=== PATIENT | female | born 2000 | race Caucasian/White ===

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

== ENCOUNTER 2022-05-22 09:24 | Day surgery (SDC) | payer MEDICAID ==
[~2022-05-22 09:24] MED LIST changes: -EPINEPHrine 1 MG/ML SDV ONE; +Lactated Ringers 1,000 ML IV SCH; -Lidocaine 1% 4 ML ONE; -Midazolam 1 MG/ML 2 ML SDV ONE; -Ropivacaine 0.5% 5 MG/ML 30 ML SDV ONE; +Sodium Chloride 0.9% 10 ML Syringe FLUSH SCH; -fentaNYL 250 MCG/5 ML SDV ONE
[2022-05-22] MEDS ORDERED: Scopolamine 1.5 MG Transdermal Patch TOP ONE (09:45)
[2022-05-22] MEDS ORDERED: EPINEPHrine 1 MG/ML 30 ML MDV IRR SCH (10:00)
[2022-05-22] MEDS ORDERED: Bupivacaine 0.25% 10 ML SDV ONE (10:14)
[2022-05-22] MEDS ORDERED: Ondansetron 4 MG/2 ML SDV ONE (10:15)
[2022-05-22] MEDS ORDERED: Propofol 200 MG/20 ML SDV ONE (10:15)
[2022-05-22] MEDS ORDERED: Lidocaine 1% 5 ML VIAL ONE (10:16)
[2022-05-22] MEDS ORDERED: fentaNYL 250 MCG/5 ML SDV ONE (10:16)
[2022-05-22] MEDS ORDERED: Midazolam 1 MG/ML 2 ML SDV ONE (10:16)
[2022-05-22] MEDS ORDERED: ceFAZolin 2 GM Vial ONE (10:16)
[2022-05-22] MEDS ORDERED: Ondansetron 4 MG/2 ML SDV IVPUSH PRN (10:50)
[2022-05-22] MEDS ORDERED: fentaNYL 100 MCG/2 ML SDV IVPUSH PRN (10:50)
[2022-05-22] MEDS ORDERED: HYDROmorphone 0.5 MG/0.5 ML Syringe IVPUSH PRN (10:50)
[2022-05-22] MEDS ORDERED: Dexamethasone 4 MG/ML 5 ML MDV ONE (10:54)
[2022-05-22] MEDS ORDERED: Lactated Ringers 1,000 ML ONE (10:55)
[2022-05-22] MEDS ORDERED: Ketorolac 30 MG/ML SDV ONE (10:56)
== END 2022-05-22 13:35 | disposition home or self-care (01) ==
LOC: JD.SDS 09:24
PROVIDERS: ATTEND Orthopaedic Surgery
DX: M25.462 Effusion, left knee (principal); M65.862 Other synovitis and tenosynovitis, left lower leg; F41.8 Other specified anxiety disorders; J30.9 Allergic rhinitis, unspecified; Z79.899 Other long term (current) drug therapy; Z98.890 Other specified postprocedural states
CPT/HCPCS: 29875; 81025; J0171; J0690; J1100; J1170; J1885; J2250; J2405; J2704; J3010; J3490; J7120; 01400